=== PATIENT | male | born 1995 | race Two or more races ===

== ENCOUNTER 2024-01-14 23:23 | Inpatient (IN) | payer OTHER ==
[~2024-01-14] VITALS: Ht 170.2 cm; Wt 75.0 kg
[2024-01-14] MEDS ORDERED: PANT-31 PO (23:32)
[2024-01-14] MEDS ORDERED: HYDR50CA7 PO (23:32)
[2024-01-14] MEDS ORDERED: LEVAHFA IH (23:32)
[2024-01-14 23:57] LABS: BASOPHILS % (AUTO) 0.8 % (0.0-2.0); EOSINOPHILS % (AUTO) 0.8 % (1.0-6.0); HEMATOCRIT 44.1 % (41-53); LYMPHOCYTES # (AUTO) 1.4 K/uL (1.0-4.8); LYMPHOCYTES % (AUTO) 27.7 % (22.0-44.0); MEAN CORPUSCULAR HEMOGLOBIN 31.6 pg (26.0-34.0); MEAN CORPUSCULAR HGB CONC 33.9 G/dL (31.0-37.0); MEAN CORPUSCULAR VOLUME 93 fL (80-100); MONOCYTES # (AUTO) 0.6 K/uL (0.1-1.0); NEUTROPHILS # (AUTO) 3.1 K/uL (1.8-7.7); NEUTROPHILS % (AUTO) 58.7 % (40.0-70.0); PLATELET COUNT (AUTO) 245 K/uL (150-450); RED BLOOD CELL COUNT(AUTO) 4.73 MIL/uL (4.50-5.90); RED CELL DISTRIBUTION WIDTH 14.8 % (11.5-14.5); WHITE BLOOD COUNT (AUTO) 5.2 K/uL (4.5-11.0)
[2024-01-14 23:59] LABS: COVID AG,FIA SOURCE NASAL SWAB
[2024-01-15 00:05] LABS: PH,URINE DRUG SCREEN 6.5 (5.0-8.0)
[2024-01-15 00:07] LABS: ANION GAP 7 mmol/L (8-16); CALCIUM, TOTAL 9.1 mg/dL (8.8-10.5); CARBON DIOXIDE 32 mmol/L (22-29); CHLORIDE 100 mmol/L (98-107); CREATININE 0.81 mg/dL (0.60-1.30); GLOMERULAR FILTR. RATE CALC > 60 mL/min (>60); GLUCOSE,RANDOM 91 mg/dL (70-110); SODIUM SERUM 139 mmol/L (136-145); UREA NITROGEN, BLOOD 15 mg/dL (7-18)
[2024-01-15 00:09] LABS: ALCOHOL, URINE DRUG SCREEN NEGATIVE (NEGATIVE); AMPHET/METH SCREEN,URINE NEGATIVE (NEGATIVE); BARBITURATE SCREEN, URINE NEGATIVE (NEGATIVE); BENZODIAZEPINES SCREEN,URINE NEGATIVE (NEGATIVE); CANNABINOID SCREEN,URINE NEGATIVE (NEGATIVE); COCAINE SCREEN,URINE NEGATIVE (NEGATIVE); METHADONE SCREEN, URINE NEGATIVE (NEGATIVE); OPIATE SCREEN,URINE NEGATIVE (NEGATIVE); PHENCYCLIDINE SCREEN,URINE NEGATIVE (NEGATIVE)
[2024-01-15 00:13] LABS: ALANINE AMINOTRANSFERASE 31 U/L (12-78); ALBUMIN 3.8 g/dL (3.4-5.0); ALKALINE PHOSPHATASE 96 U/L (46-116); ASPARTATE AMINOTRANSFERASE 19 U/L (15-37); BILIRUBIN,TOTAL 0.3 mg/dL (0.1-1.0); TOTAL PROTEIN, SERUM 7.2 g/dL (6.4-8.2)
[2024-01-15 00:14] LABS: ACETAMINOPHEN < 2 mcg/mL (10-30)
[2024-01-15 00:19] LABS: ALCOHOL, BLOOD (SERUM) < 3 mg/dL (0-10)
[2024-01-15 00:20] LABS: SARS-COV2 (COVID) ANTIGEN,FIA Negative (Negative)
[2024-01-15 00:48] LABS: SALICYLATE < 0.2 mg/dL (2.8-20.0)
[2024-01-15] MEDS ORDERED: KETOROLAC TROMETHAMINE 30 MG/ML VIAL IVP ONE (01:15)
[2024-01-15] MEDS: ACETAMINOPHEN 650 MG/ISO-OSM 65 ML IV ONE (01:23)
[2024-01-15 02:30] VITALS: BP 100/61; PULSE 63; RESP 18; TEMP 97.6
[2024-01-15 08:04] VITALS: BP 106/66; PULSE 74; RESP 18; TEMP 98.1
[2024-01-15] MEDS ORDERED: BISACODYL 10 MG RECTAL RECTAL SUPPOSITORY PR PRN (10:30)
[2024-01-15] MEDS ORDERED: ONDANSETRON HCL 4 MG/2 ML VIAL IVP PRN (10:30)
[2024-01-15] MEDS ORDERED: ZOLPIDEM TARTRATE 5 MG TABLET PO PRN (10:30)
[2024-01-15] MEDS ORDERED: MAGNESIUM HYDROXIDE SUSPENSION 30 ML UDCUP PO PRN (10:30)
[2024-01-15] MEDS ORDERED: LEVALBUTEROL TARTRATE HFA 45 MCG/PUFF 15 GM INHALER IH PRN (10:30)
[2024-01-15] MEDS ORDERED: VENLAFAXINE HCL 75 MG TABLET PO SCH (11:15)
[2024-01-15] MEDS: VENLAFAXINE HCL 75 MG ER CAPSULE PO SCH (12:22)
[2024-01-15] MEDS: HEPARIN SODIUM,PORCINE 5,000 UNITS/ML VIAL SQ SCH (15:39)
[2024-01-16 04:28] VITALS: BP 99/64; PULSE 77; RESP 18; TEMP 98.3
[2024-01-16 08:02] VITALS: BP 97/62; PULSE 60; RESP 19; TEMP 97.6
[2024-01-16] MEDS: PANTOPRAZOLE SODIUM 40 MG DR TABLET PO SCH (08:34)
[2024-01-16] MEDS: DOCUSATE SODIUM 100 MG CAPSULE PO SCH (08:35)
[2024-01-16 20:22] VITALS: BP 103/51; PULSE 74; RESP 20; TEMP 97.8
[2024-01-17 03:46] VITALS: BP 99/60; PULSE 65; RESP 19; TEMP 98.2
[2024-01-17 08:16] VITALS: BP 104/55; PULSE 59; RESP 18; TEMP 98
[2024-01-17 19:20] VITALS: BP 104/53; PULSE 83; RESP 20; TEMP 97.4
[2024-01-18 04:55] VITALS: BP 109/57; PULSE 58; RESP 18; TEMP 97.7
[2024-01-18 08:17] VITALS: BP 97/58; PULSE 68; RESP 18; TEMP 98.3
[2024-01-18 19:16] VITALS: BP 115/69; PULSE 77; RESP 18; TEMP 98.1
[2024-01-19 05:15] VITALS: BP 101/58; PULSE 73; RESP 18; TEMP 97.6
[2024-01-19 08:36] VITALS: BP 108/60; PULSE 66; RESP 20; TEMP 97.5
[2024-01-19] MEDS ORDERED: VENL-193 PO (12:04)
== END 2024-01-19 19:55 | DRG 918 ==
LOC: EMS 23:25 → 6S 01-15 02:24
PROVIDERS: ADMIT Hospitalist; ATTEND Hospitalist
DX: T43.292A Poisoning by other antidepressants, intentional self-harm, initial encounter (principal); R45.851 Suicidal ideations; F33.2 Major depressive disorder, recurrent severe without psychotic features; J45.909 Unspecified asthma, uncomplicated; Z20.822 Contact with and (suspected) exposure to COVID-19; K21.9 Gastro-esophageal reflux disease without esophagitis; B18.2 Chronic viral hepatitis C; F15.90 Other stimulant use, unspecified, uncomplicated; F60.2 Antisocial personality disorder; Y92.89 Other specified places as the place of occurrence of the external cause; Z79.899 Other long term (current) drug therapy
CPT/HCPCS: 80053; 80307; 85025; 93005; 99285; G0480; G0481; J0131; J1644